=== PATIENT | female | born 1945 | race Caucasian/White ===

== ENCOUNTER 2017-10-19 13:54 | Outpatient (CLI) | payer MEDICARE, OTHER ==
[2017-10-19 18:35] LABS: THYROID STIMULATING HORMONE < 0.08 uIU/mL (0.34-5.60)
[2017-10-19 18:37] LABS: FREE T4 (FREE THYROXINE) 1.47 ng/dL (0.58-1.64)
== END 2017-10-19 13:55 | disposition home or self-care (01) ==
LOC: LAB.F 13:54
PROVIDERS: ATTEND Nurse Practitioner
DX: E05.90 Thyrotoxicosis, unspecified without thyrotoxic crisis or storm (principal)
CPT/HCPCS: 36415; 84439; 84443

== ENCOUNTER 2017-11-19 10:12 | Outpatient (CLI) | payer MEDICARE, OTHER ==
[2017-11-19 17:56] LABS: THYROID STIMULATING HORMONE 25.25 uIU/mL (0.34-5.60)
[2017-11-19 17:58] LABS: FREE T4 (FREE THYROXINE) 0.35 ng/dL (0.58-1.64)
== END 2017-11-19 10:13 | disposition home or self-care (01) ==
LOC: LAB.F 10:12
PROVIDERS: ATTEND Nurse Practitioner
DX: E05.90 Thyrotoxicosis, unspecified without thyrotoxic crisis or storm (principal)
CPT/HCPCS: 36415; 84439; 84443; 84481

== ENCOUNTER 2017-11-30 09:26 | Outpatient (CLI) | payer MEDICARE, OTHER ==
[2017-11-30 18:15] LABS: ALBUMIN 3.8 g/dL (3.2-5.5); ALKALINE PHOSPHATASE 92 IU/L (42-121); ALT ALANINE AMINOTRANSFERASE 22 IU/L (10-60); AST ASPARTATE AMINOTRANSFERASE 30 IU/L (10-42); BILIRUBIN,TOTAL 0.5 mg/dL (0.2-1.0); CHOL/HDL RATIO 4.5 (<4.4); CHOLESTEROL 192 mg/dL; HDL CHOLESTEROL 43 mg/dL; LDL CHOLESTEROL,CALCULATED 107 mg/dL; LDL/HDL RATIO 2.5 (<4.4); TOTAL PROTEIN 7.7 g/dL (6.7-8.2); VLDL CHOLESTEROL 42 mg/dL
[2017-11-30 18:32] LABS: BILIRUBIN,DIRECT < 0.1 mg/dL (0.1-0.5)
== END 2017-11-30 09:27 | disposition home or self-care (01) ==
LOC: LAB.F 09:26
PROVIDERS: ATTEND Internal Medicine
DX: E78.5 Hyperlipidemia, unspecified (principal)
CPT/HCPCS: 36415; 80061; 80076; 83721

== ENCOUNTER 2018-01-05 09:01 | Outpatient (CLI) | payer MEDICARE, OTHER ==
[2018-01-05 12:11] LABS: THYROID STIMULATING HORMONE 5.71 uIU/mL (0.34-5.60)
[2018-01-05 12:13] LABS: FREE T4 (FREE THYROXINE) 0.71 ng/dL (0.58-1.64)
== END 2018-01-05 09:02 | disposition home or self-care (01) ==
LOC: LAB.F 09:01
PROVIDERS: ATTEND Nurse Practitioner
DX: E03.8 Other specified hypothyroidism (principal)
CPT/HCPCS: 36415; 84439; 84443

== ENCOUNTER 2018-02-22 08:00 | Outpatient (CLI) | payer MEDICARE, OTHER ==
[2018-02-22 18:48] LABS: THYROID STIMULATING HORMONE 0.33 uIU/mL (0.34-5.60)
[2018-02-22 18:50] LABS: FREE T4 (FREE THYROXINE) 0.82 ng/dL (0.58-1.64)
== END 2018-02-22 08:01 | disposition home or self-care (01) ==
LOC: LAB.F 08:00
PROVIDERS: ATTEND Nurse Practitioner
DX: E03.8 Other specified hypothyroidism (principal)
CPT/HCPCS: 36415; 84439; 84443

== ENCOUNTER 2018-04-23 10:57 | Outpatient (CLI) | payer MEDICARE, OTHER ==
[2018-04-23 18:01] LABS: THYROID STIMULATING HORMONE 0.22 uIU/mL (0.34-5.60)
[2018-04-23 18:03] LABS: FREE T4 (FREE THYROXINE) 0.79 ng/dL (0.58-1.64)
== END 2018-04-23 10:58 | disposition home or self-care (01) ==
LOC: LAB.F 10:57
PROVIDERS: ATTEND Nurse Practitioner
DX: E03.8 Other specified hypothyroidism (principal)
CPT/HCPCS: 36415; 84439; 84443

== ENCOUNTER 2018-06-08 09:34 | Outpatient (CLI) | payer MEDICARE, OTHER ==
[2018-06-08 18:23] LABS: THYROID STIMULATING HORMONE 1.91 uIU/mL (0.34-5.60)
[2018-06-08 18:25] LABS: FREE T4 (FREE THYROXINE) 0.63 ng/dL (0.58-1.64)
== END 2018-06-08 09:35 | disposition home or self-care (01) ==
LOC: LAB.F 09:34
PROVIDERS: ATTEND Nurse Practitioner
DX: E03.8 Other specified hypothyroidism (principal)
CPT/HCPCS: 84439; 84443; 84481

== ENCOUNTER 2018-07-23 09:31 | Outpatient (CLI) | payer MEDICARE, OTHER | END 2018-07-23 09:32 | disposition home or self-care (01) | LOC: LAB.F 09:31 | PROVIDERS: ATTEND Internal Medicine | DX: E78.49 Other hyperlipidemia (principal) | CPT/HCPCS: 36415; 80061; 80076; 83721 ==

== ENCOUNTER 2018-07-30 09:01 | Outpatient (CLI) | payer MEDICARE, OTHER ==
[2018-07-30 14:25] LABS: ALBUMIN 4.3 g/dL (3.2-5.5); ALKALINE PHOSPHATASE 90 IU/L (42-121); ALT ALANINE AMINOTRANSFERASE 24 IU/L (10-60); AST ASPARTATE AMINOTRANSFERASE 26 IU/L (10-42); BILIRUBIN,TOTAL 0.7 mg/dL (0.2-1.0); CHOL/HDL RATIO 3.4 (<4.4); CHOLESTEROL 175 mg/dL; HDL CHOLESTEROL 52 mg/dL; LDL CHOLESTEROL,CALCULATED 85 mg/dL; LDL/HDL RATIO 1.6 (<4.4); TOTAL PROTEIN 7.7 g/dL (6.7-8.2); VLDL CHOLESTEROL 38 mg/dL
[2018-07-30 14:27] LABS: BILIRUBIN,DIRECT < 0.1 mg/dL (0.1-0.5)
== END 2018-07-30 09:02 | disposition home or self-care (01) ==
LOC: LAB.F 09:01
PROVIDERS: ATTEND Internal Medicine
DX: E78.49 Other hyperlipidemia (principal)
CPT/HCPCS: 36415; 80061; 80076; 83721

== ENCOUNTER 2018-08-09 12:05 | Outpatient (CLI) | payer MEDICARE, OTHER ==
[2018-08-09 19:13] LABS: CALCIUM 10.3 mg/dL (8.5-10.3); CREATININE 0.9 mg/dL (0.4-1.0)
== END 2018-08-09 12:06 | disposition home or self-care (01) ==
LOC: LAB.F 12:05
PROVIDERS: ATTEND Nurse Practitioner Family
DX: Z01.818 Encounter for other preprocedural examination (principal)
CPT/HCPCS: 36415; 80048; 85014

== ENCOUNTER 2018-09-01 08:00 | Outpatient (CLI) | payer MEDICARE, OTHER ==
[2018-09-01 17:57] LABS: BILIRUBIN,URINE NEGATIVE (NEGATIVE); GLUCOSE, URINE (UA) NEGATIVE (NEGATIVE); KETONES,URINE (UA) NEGATIVE (NEGATIVE); LEUKOCYTE ESTERASE, URINE LARGE (NEGATIVE); NITRITE,URINE NEGATIVE (NEGATIVE); OCCULT BLOOD,URINE SMALL (NEGATIVE); PH,URINE 5.5 PH (5.0-7.5); PROTEIN,URINE NEGATIVE (NEGATIVE); UROBILINOGEN,URINE 0.2 (NORMAL) E.U./dL (NORMAL)
[2018-09-01 19:03] LABS: CLARITY,URINE CLEAR (CLEAR); EPITHELIAL CELLS,UR FEW Transitional /HPF (<= Few); RBC,URINE 0-5 /HPF (0-5); SQUAMOUS EPITHELIAL CELL,UR FEW Squamous (<= Few)
[2018-09-01 19:04] LABS: BACTERIA,URINE Many /HPF (None Seen)
== END 2018-09-01 23:59 | disposition home or self-care (01) ==
LOC: LAB.F 08:00
PROVIDERS: ATTEND Obstetrics & Gynecology
DX: R30.0 Dysuria (principal)
CPT/HCPCS: 81001; 87077; 87086; 87181

== ENCOUNTER 2018-10-19 14:04 | Outpatient (CLI) | payer MEDICARE, OTHER | END 2018-10-19 14:05 | disposition home or self-care (01) | LOC: LAB.F 14:04 | PROVIDERS: ATTEND Obstetrics & Gynecology | DX: R30.0 Dysuria (principal) | CPT/HCPCS: 87086 ==

== ENCOUNTER 2018-12-13 14:26 | Emergency (ER) | payer MEDICARE, OTHER ==
--- NOTE | 2018-12-13 16:09 | ED Physician Documentation ---
History of Present Illness - Stated complaint Stated Complaint: V/NECK PX - Chief complaint Chief Complaint: General - History obtained from History obtained from: Patient - History of Present Illness Timing: How many days ago (3) Pain level max: 8 Pain level now: 8 - Additonal information Additional information: states pain in her neck and head after painting all day a few days ago. No neurological deficits. No fall. no trauma. Has not taking anything but marijuana. Better with rest and worse with movement. similar symptoms several years ago. States improved with pain meds and muscle relaxants. Review of Systems Constitutional: denies: Fever, Chills Throat: denies: Sore throat Respiratory: denies: Cough GI: reports: Nausea, Vomiting. denies: Abdominal Pain, Diarrhea : denies: Dysuria, Frequency, Hesitancy Skin: denies: Rash Musculoskeletal: reports: Neck pain Neurologic: reports: Headache. denies: Focal weakness, Numbness PD PAST MEDICAL HISTORY - Past Medical History Past Medical History: Yes Cardiovascular: Hypertension, High cholesterol Neuro: None Endocrine/Autoimmune: None GI: None HOSPITAL CODER: None : None HEENT: None Psych: None Musculoskeletal: None Derm: None - Past Surgical History Past Surgical History: Yes General: Cholecystectomy /HOSPITAL CODER: Hysterectomy, Oophrectomy, Mastectomy - Present Medications Home Medications: Ambulatory Orders Medication Instructions Recorded Confirmed Cyclobenzaprine [Flexeril] 10 mg DAILY PRN 01/01/14 01/21/14 Lisinopril [Prinivil] 10 mg BID 01/01/14 01/21/14 Cyclobenzaprine [Flexeril] 10 mg PO TID PRN #20 tablet 12/13/18 Meloxicam [Mobic] 15 mg PO DAILY PRN #20 tablet 12/13/18 Ondansetron Odt [Zofran] 4 mg TL Q6H PRN #10 tablet 12/13/18 - Allergies Allergies/Adverse Reactions: Allergies Allergy/AdvReac Type Severity Reaction Status Date / Time meperidine HCl * Allergy Nausea Verified 12/13/18 14:33 [From Demerol] Penicillins Allergy Rash Verified 12/13/18 14:33 Sulfa (Sulfonamide Allergy Rash Verified 12/13/18 14:33 Antibiotics) codeine AdvReac Nausea Verified 12/13/18 14:33 - Social History Does the pt smoke?: No Smoking Status: Never smoker Does the pt drink ETOH?: No Does the pt have substance abuse?: Yes Substance Use and Type: Marijuana - Immunizations Immunizations are current?: Yes - POLST Patient has POLST: No PD ED PE NORMAL - Vitals Vital signs reviewed: Yes - General General: Alert and oriented X 3, No acute distress, Well developed/nourished - HEENT HEENT: Atraumatic, PERRL, EOMI, Moist mucous membranes - Neck Neck: Supple, no meningeal sign, No bony TTP, Other (paraspinal spasm B. 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 Feels better after pain medication and muscle relaxants. Will place on the same for home. We will follow-up with her doctor for further care. Patient counseled regarding signs and symptoms for which I believe and urgent re-evaluation would be necessary. Patient with good understanding of and agreement to plan and is comfortable going home at this time This document was made in part using voice recognition software. While efforts are made to proofread this document, sound alike and grammatical errors may occur. Departure - Departure Disposition: 01 Home, Self Care Clinical Impression: Neck muscle spasm Condition: Good Instructions: ED Spasm Neck No Injury Follow-Up: Leeann Ramirez MD [Primary Care Provider] - Within 1 week Prescriptions: Cyclobenzaprine [Flexeril] 10 mg PO TID PRN #20 tablet PRN Reason: Spasms Meloxicam [Mobic] 15 mg PO DAILY PRN #20 tablet PRN Reason: pain Ondansetron Odt [Zofran] 4 mg TL Q6H PRN #10 tablet PRN Reason: Nausea / Vomiting Comments: Use the medications as prescribed. Return if you worsen. Do not drive or operate heavy machinery while taking the Flexeril. Continue to gently move your neck as this will help with the spasm. Discharge Date/Time: 12/13/18 16:52
[2018-12-13] MEDS ORDERED: MELOXICAM 7.5 MG TABLET PO STA (16:10)
[2018-12-13] MEDS ORDERED: CYCLOBENZAPRINE 10 MG TABLET PO STA (16:10)
[2018-12-13] MEDS: ONDANSETRON ODT 4 MG TABLET TL STA ×2 (16:23→16:25)
[2018-12-13 16:51] VITALS: BP 136/88
== END 2018-12-13 16:52 | disposition home or self-care (01) ==
LOC: ED 14:26
DX: M62.838 Other muscle spasm (principal); M54.2 Cervicalgia; I10 Essential (primary) hypertension
CPT/HCPCS: 99282; 99284; A9270; Q0162

== ENCOUNTER 2020-06-18 15:15 | Emergency (ER) | payer MEDICARE, OTHER ==
--- NOTE | 2020-06-18 15:28 | ED Physician Documentation ---
PD HPI Fall - Stated complaint Stated Complaint: FALL, HAND & BACK INJURY - History obtained from History obtained from: Patient - Additional information Additional information: Fell 3 feet off a ladder landing on her right side and back in her right hand. The hand and back hurt more than anything. She denies head or neck pain or head or neck injury. Declines pain medication on initial evaluation. 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: Hysterectomy, Oophrectomy, Mastectomy - Present Medications Home Medications: Ambulatory Orders Medication Instructions Recorded Confirmed Cyclobenzaprine [Flexeril] 10 mg DAILY PRN 01/01/14 01/21/14 Lisinopril [Prinivil] 10 mg BID 01/01/14 01/21/14 Cyclobenzaprine [Flexeril] 10 mg PO TID PRN #20 tablet 12/13/18 Meloxicam [Mobic] 15 mg PO DAILY PRN #20 tablet 12/13/18 Ondansetron Odt [Zofran] 4 mg TL Q6H PRN #10 tablet 12/13/18 HYDROcod/ACETAM 5/325 [Burton 5/325] 1 - 2 tab PO Q6H PRN #15 tablet 06/18/20 Ondansetron Odt [Zofran] 4 mg TL Q6H PRN #15 tablet 06/18/20 - Allergies Allergies/Adverse Reactions: Allergies Allergy/AdvReac Type Severity Reaction Status Date / Time meperidine HCl * Allergy Nausea Verified 06/18/20 15:38 [From Demerol] Penicillins Allergy Rash Verified 06/18/20 15:38 Sulfa (Sulfonamide Allergy Rash Verified 06/18/20 15:38 Antibiotics) codeine AdvReac Nausea Verified 06/18/20 15:38 - Social History Does the pt smoke?: No Smoking Status: Never smoker Does the pt drink ETOH?: No Does the pt have substance abuse?: Yes - Immunizations Immunizations are current?: Yes - POLST Patient has POLST: No PD ED PE NORMAL - Vitals Vital signs reviewed: Yes - General General: Alert and oriented X 3, No acute distress - HEENT HEENT: PERRL, EOMI - Neck Neck: No bony TTP - Cardiac Cardiac: RRR, No murmur - Respiratory Respiratory: No respiratory distress, Clear bilaterally - Back Back: Other (She has some mild tenderness of the lateral right low ribs. No midline thoracic or cervical spine tenderness. She does have tenderness at the lumbar sacral junction.) - Derm Derm: Normal color, Warm and dry - Extremities Extremities: Other (There is a swollen slightly fluctuant but mostly firm mass over the proximal fifth metacarpal dorsally of the right hand and tender in that area.) - Neuro Neuro: Alert and oriented X 3, Normal speech - Psych Psych: Normal mood, Normal affect Results - Vitals Vitals: Vital Signs - 24 hr 06/18/20 06/18/20 15:30 16:19 Temperature 36.8 C Heart Rate 68 68 Respiratory 16 16 Rate Blood Pressure 177/74 H 162/60 H O2 Saturation 99 100 Oxygen O2 Source Room air - Rads (name of study) XR R hand,. L spine, Coccyx, R ribs Radiology: EMP read contemporaneously (Neg except An acute oblique fracture of the fifth proximal metacarpal with minimal displacement.) Procedures - Splint (location) R hand XR Splint applied by: Tech Type of splint: Ulnar gutter Other: Patient tolerated well, No complications, Neurovascular intact, Good alignment Departure - Departure Disposition: 01 Home, Self Care Clinical Impression: Fall from height of greater than 3 feet Fracture of fifth metacarpal bone of right hand Qualifiers: Encounter type: initial encounter Fracture type: closed Metacarpal location: base Fracture alignment: nondisplaced Qualified Code(s): S62.346A - Nondisplaced fracture of base of fifth metacarpal bone, right hand, initial encounter for closed fracture Back pain Qualifiers: Back pain location: low back pain Chronicity: acute Back pain laterality: unspecified Sciatica presence: without sciatica Qualified Code(s): M54.5 - Low back pain Chest wall contusion Qualifiers: Encounter type: initial encounter Laterality: unspecified laterality Qualified Code(s): S20.219A - Contusion of unspecified front wall of thorax, initial encounter Condition: Good Instructions: ED Fx Hand Closed Follow-Up: [facility] [Provider Group] Prescriptions: HYDROcod/ACETAM 5/325 [Burton 5/325] 1 - 2 tab PO Q6H PRN #15 tablet PRN Reason: Pain Ondansetron Odt [Zofran] 4 mg TL Q6H PRN #15 tablet PRN Reason: Nausea / Vomiting Comments: Keep the splint on and dry until you follow-up with the orthopedics office, call them tomorrow for an appointment within the week. Return for new or worsening symptoms.
[2020-06-18] MEDS ORDERED: ONDANSETRON ODT 4 MG TABLET TL STA (16:08)
[2020-06-18] MEDS ORDERED: HYDROcod/ACETAM 5/325 MG TABLET PO STA (16:08)
[2020-06-18 16:20] VITALS: BP 162/60
--- NOTE | 2020-06-18 16:20 | XRAY Report ---
PROCEDURE: Sacrum/Coccyx INDICATIONS: back inj TECHNIQUE: 3 views of the sacrum and coccyx acquired. COMPARISON: None. FINDINGS: Bones: No fractures or dislocations. No suspicious bony lesions. Soft tissues: Visualized bowel gas pattern is normal. No suspicious soft tissue densities. IMPRESSION: No gross acute sacral or coccygeal fracture. Reviewed by: Shay Shook MD on 06/18/2020 4:18 PM PST Approved by: Shay Shook MD on 06/18/2020 4:18 PM PST Station ID: [id number]
--- NOTE | 2020-06-18 16:22 | XRAY Report ---
PROCEDURE: Ribs w/PA Chest RT INDICATIONS: rib inj TECHNIQUE: 2 views of the right ribs were acquired, along with a single view chest. COMPARISON: Chest radiograph dated 01/21/2014. FINDINGS: Surgical changes and devices: Surgical clips are seen in right upper quadrant abdomen. Postbiopsy mar ker is also seen in right breast. Bones and chest wall: No fractures or dislocations. No suspicious bony lesions. Overlying soft tis sues appear unremarkable. Lungs and pleura: No pleural effusions or pneumothorax. Lungs appear clear. Mediastinum: Mediastinal contours appear normal. Heart size is normal. IMPRESSION: 1. No gross displaced right rib fracture. 2. No acute cardiopulmonary pathology. Reviewed by: Shay Shook MD on 06/18/2020 4:20 PM PST Approved by: Shay Shook MD on 06/18/2020 4:20 PM PST Station ID: [id number]
--- NOTE | 2020-06-18 16:23 | XRAY Report ---
PROCEDURE: Lumbar Spine 2 View INDICATIONS: back inj TECHNIQUE: 2 views of the lumbar spine were acquired. COMPARISON: None. FINDINGS: Bones: 5 [id number] vertebrae are present. There is moderate rightward scoliosis of lumbar spi ne centered at L3-4 level. Degenerative endplate changes and decreased intervertebral disc space thro ughout lumbar spine is seen.. No vertebral body compression fractures. No suspicious bony lesions. Soft tissues: Overlying bowel gas pattern is normal. No suspicious soft tissue calcifications. IMPRESSION: No acute lumbar spine fracture or dislocation. 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 Mild to moderate scoliosis as above. Reviewed by: Shay Shook MD on 06/18/2020 4:21 PM PST Approved by: Shay Shook MD on 06/18/2020 4:21 PM PST Station ID: [id number]
--- NOTE | 2020-06-18 16:24 | XRAY Report ---
PROCEDURE: Hand 3 View RT INDICATIONS: hand inj TECHNIQUE: 3 views of the hand(s) acquired. COMPARISON: None FINDINGS: Bones: Acute oblique fracture through proximal shaft of fifth metacarpal bone is seen with minimal di splacement at fracture site. Osteoarthritic changes are noted throughout right hand more prominent in second through fifth the RT joints. No suspicious bony lesions. Soft tissues: No suspicious soft tissue calcifications. Marked soft tissue swelling over dorsal and medial aspect of fifth metacarpal shaft is seen. IMPRESSION: Acute oblique fracture of fifth proximal shaft of fifth metacarpal bone with minimal displacement at fracture site and marked overlying soft tissue swelling. 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 Reviewed by: Shay Shook MD on 06/18/2020 4:23 PM PST Approved by: Shay Shook MD on 06/18/2020 4:23 PM PST Station ID: [id number]
== END 2020-06-18 16:44 | disposition home or self-care (01) ==
LOC: ED 15:15
DX: S62.316A Displaced fracture of base of fifth metacarpal bone, right hand, initial encounter for closed fracture (principal); S20.219A Contusion of unspecified front wall of thorax, initial encounter; W17.89XA Other fall from one level to another, initial encounter; M54.5 Low back pain; I10 Essential (primary) hypertension
CPT/HCPCS: 29125; 71101; 72100; 72220; 73130; 99283; 99284; A9270; Q0162

== ENCOUNTER 2020-10-30 08:00 | Outpatient (CLI) | payer MEDICARE, OTHER ==
--- NOTE | 2020-10-30 17:55 | XRAY Report ---
PROCEDURE: Sacrum/Coccyx INDICATIONS: PAIN IN THE COCCYX TECHNIQUE: 3 views of the sacrum and coccyx acquired. COMPARISON: Concurrent study of the lumbar spine, lumbar spine x-ray 06/18/2020 FINDINGS: Bones: No definite fracture of the coccyx. There is mild sacroiliac joint degeneration. Transitional anatomy is redemonstrated at L5. No suspicious bony lesions. Soft tissues: Visualized bowel gas pattern is normal. No suspicious soft tissue densities. IMPRESSION: 1. No definite coccyx fracture identified. Reviewed by: Adelso Kinney MD on 10/30/2020 5:53 PM PDT Approved by: Adelso Kinney MD on 10/30/2020 5:53 PM PDT Station ID: [id number]
--- NOTE | 2020-10-30 18:00 | XRAY Report ---
PROCEDURE: Lumbar Spine 2 View INDICATIONS: LOW BACK PAIN TECHNIQUE: 3 views of the lumbar spine were acquired. COMPARISON: X-ray of the lumbar spine 06/18/2020. CT abdomen pelvis 01/01/2014. FINDINGS: Bones: 5 [id number] vertebrae are present. There is transitional anatomy with sacralization of the L5 vertebra. There is a rudimentary disc at L5-S1. A rightward curvature is redemonstrated center ed at L3-L4. There is mild multilevel degenerative disc disease throughout the lumbar spine. Mild fac et arthropathy also present in the lower lumbar spine. No vertebral body compression fractures. There is a linear lucency projecting over the S4 level in the sacrum. Soft tissues: Overlying bowel gas pattern is normal. 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 IMPRESSION: 1. Linear lucency projecting over the the S4 level may represent a minimally displaced sacral fractur e. If clinical concern persists, recommend further evaluation with CT. 2. 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 A follow-up nonemergent CT may performed to fur ther evaluation if clinically indicated. 3. Transitional anatomy with sacralization of L5. 4. Rightward curvature of the lumbar spine centered at L3-L4. Reviewed by: Adelso Kinney MD on 10/30/2020 5:59 PM PDT Approved by: Adelso Kinney MD on 10/30/2020 5:59 PM PDT Station ID: [id number]
== END 2020-10-30 23:59 | disposition home or self-care (01) ==
LOC: DI.S 08:00
PROVIDERS: ATTEND Physician Assistant Medical
DX: M47.898 Other spondylosis, sacral and sacrococcygeal region (principal); M51.36 Other intervertebral disc degeneration, lumbar region; M47.816 Spondylosis without myelopathy or radiculopathy, lumbar region; M41.9 Scoliosis, unspecified

== ENCOUNTER 2021-10-18 09:55 | Outpatient (CLI) | payer MEDICARE, OTHER ==
[2021-10-18 14:53] LABS: BASOPHILS # (AUTO) 0.1 10^3/uL (0.0-0.1); BASOPHILS % (AUTO) 1.3 %; EOSINOPHILS # (AUTO) 0.2 10^3/uL (0.0-0.7); EOSINOPHILS % (AUTO) 3.2 %; HCT - HEMATOCRIT 41.1 % (37.0-47.0); LYMPHOCYTES # (AUTO) 1.2 10^3/uL (1.5-3.5); LYMPHOCYTES % (AUTO) 22.6 %; MEAN CORPUSCULAR HEMOGLOBIN 30.6 pg (27.0-31.0); MEAN CORPUSCULAR HGB CONC 34.1 g/dL (32.0-36.0); MEAN CORPUSCULAR VOLUME 89.7 fL (81.0-99.0); MEAN PLATELET VOLUME 10.1 fL (7.9-10.8); MONOCYTES # (AUTO) 0.4 10^3/uL (0.0-1.0); NEUTROPHILS # (AUTO) 3.5 10^3/uL (1.5-6.6); NEUTROPHILS % (AUTO) 64.7 %; PLT - PLATELET COUNT 221 10^3/uL (130-450); RED BLOOD COUNT 4.58 10^6/uL (4.20-5.40); RED CELL DISTRIBUTION WIDTH 11.9 % (12.0-15.0); WHITE BLOOD COUNT 5.4 x10^3/uL (4.8-10.8)
[2021-10-18 15:18] LABS: ALBUMIN 4.2 g/dL (3.2-5.5); ALBUMIN/GLOBULIN RATIO 1.4 (1.0-2.2); BILIRUBIN,TOTAL 0.6 mg/dL (0.2-1.0); CALCIUM 9.7 mg/dL (8.5-10.3); POTASSIUM 4.1 mmol/L (3.5-5.0); TOTAL PROTEIN 7.2 g/dL (6.7-8.2)
[2021-10-18 15:33] LABS: THYROID STIMULATING HORMONE 0.57 uIU/mL (0.34-5.60)
== END 2021-10-18 09:56 | disposition home or self-care (01) ==
LOC: LAB.S 09:55
PROVIDERS: ATTEND Nurse Practitioner Family
DX: R00.0 Tachycardia, unspecified (principal)
CPT/HCPCS: 36415; 80053; 84443; 85025

== ENCOUNTER 2022-08-21 14:07 | Outpatient (CLI) | payer MEDICARE, OTHER ==
[2022-08-21 19:52] LABS: BASOPHILS # (AUTO) 0.1 10^3/uL (0.0-0.1); BASOPHILS % (AUTO) 0.8 %; EOSINOPHILS # (AUTO) 0.1 10^3/uL (0.0-0.7); EOSINOPHILS % (AUTO) 1.5 %; HCT - HEMATOCRIT 42.2 % (37.0-47.0); HGB - HEMOGLOBIN 13.9 g/dL (12.0-16.0); LYMPHOCYTES # (AUTO) 1.6 10^3/uL (1.5-3.5); LYMPHOCYTES % (AUTO) 26.8 %; MEAN CORPUSCULAR HEMOGLOBIN 29.3 pg (27.0-31.0); MEAN CORPUSCULAR HGB CONC 32.9 g/dL (32.0-36.0); MEAN CORPUSCULAR VOLUME 88.8 fL (81.0-99.0); MEAN PLATELET VOLUME 10.2 fL (7.9-10.8); MONOCYTES # (AUTO) 0.5 10^3/uL (0.0-1.0); MONOCYTES % (AUTO) 7.7 %; NEUTROPHILS # (AUTO) 3.7 10^3/uL (1.5-6.6); NEUTROPHILS % (AUTO) 62.9 %; PLT - PLATELET COUNT 214 10^3/uL (130-450); RED BLOOD COUNT 4.75 10^6/uL (4.20-5.40); RED CELL DISTRIBUTION WIDTH 11.7 % (12.0-15.0)
[2022-08-21 20:09] LABS: ALBUMIN 4.1 g/dL (3.2-5.5); ALBUMIN/GLOBULIN RATIO 1.5 (1.0-2.2); BILIRUBIN,TOTAL 0.6 mg/dL (0.2-1.0); CALCIUM 9.4 mg/dL (8.5-10.3); CREATININE 0.9 mg/dL (0.4-1.0); POTASSIUM 3.9 mmol/L (3.5-5.0); TOTAL PROTEIN 6.9 g/dL (6.7-8.2)
[2022-08-21 20:26] LABS: THYROID STIMULATING HORMONE 0.43 uIU/mL (0.34-5.60)
[2022-08-21 21:07] LABS: ESTIMATED AVERAGE GLUCOSE 143 mg/dL (70-100); HEMOGLOBIN A1c% 6.6 % (4.27-6.07)
== END 2022-08-21 14:08 | disposition home or self-care (01) ==
LOC: LAB.S 14:07
PROVIDERS: ATTEND Nurse Practitioner Family
DX: I12.9 Hypertensive chronic kidney disease with stage 1 through stage 4 chronic kidney disease, or unspecified chronic kidney disease (principal); N18.31 Chronic kidney disease, stage 3a; R73.03 Prediabetes; E03.8 Other specified hypothyroidism
CPT/HCPCS: 36415; 80053; 83036; 84443; 85025

== ENCOUNTER 2023-02-08 13:22 | Emergency (ER) | payer MEDICARE, OTHER ==
[2023-02-08 13:50] LABS: BASOPHILS % (AUTO) 0.4 %; EOSINOPHILS # (AUTO) 0.1 10^3/uL (0.0-0.7); EOSINOPHILS % (AUTO) 1.2 %; HCT - HEMATOCRIT 47.3 % (37.0-47.0); HGB - HEMOGLOBIN 15.9 g/dL (12.0-16.0); LYMPHOCYTES % (AUTO) 19.1 %; MEAN CORPUSCULAR HEMOGLOBIN 29.2 pg (27.0-31.0); MEAN CORPUSCULAR HGB CONC 33.6 g/dL (32.0-36.0); MEAN CORPUSCULAR VOLUME 86.8 fL (81.0-99.0); MEAN PLATELET VOLUME 9.3 fL (7.9-10.8); MONOCYTES # (AUTO) 0.4 10^3/uL (0.0-1.0); MONOCYTES % (AUTO) 8.5 %; NEUTROPHILS # (AUTO) 3.7 10^3/uL (1.5-6.6); NEUTROPHILS % (AUTO) 70.6 %; PLT - PLATELET COUNT 190 10^3/uL (130-450); RED BLOOD COUNT 5.45 10^6/uL (4.20-5.40); RED CELL DISTRIBUTION WIDTH 11.8 % (12.0-15.0); WHITE BLOOD COUNT 5.2 x10^3/uL (4.8-10.8)
[2023-02-08 14:06] LABS: ALBUMIN 4.5 g/dL (3.2-5.5); ALBUMIN/GLOBULIN RATIO 1.7 (1.0-2.2); BILIRUBIN,TOTAL 0.7 mg/dL (0.2-1.0); CREATININE 0.9 mg/dL (0.6-1.3); POTASSIUM 3.5 mmol/L (3.5-4.5); TOTAL PROTEIN 7.2 g/dL (6.4-8.9)
[2023-02-08 14:25] LABS: BILIRUBIN,URINE NEGATIVE (NEGATIVE); CLARITY,URINE CLEAR (CLEAR); GLUCOSE, URINE (UA) NEGATIVE (NEGATIVE); KETONES,URINE (UA) NEGATIVE (NEGATIVE); LEUKOCYTE ESTERASE, URINE SMALL (NEGATIVE); NITRITE,URINE NEGATIVE (NEGATIVE); OCCULT BLOOD,URINE NEGATIVE (NEGATIVE); PROTEIN,URINE NEGATIVE (NEGATIVE); UROBILINOGEN,URINE 0.2 (NORMAL) E.U./dL (NORMAL)
--- NOTE | 2023-02-08 14:25 | ED Physician Documentation ---
PD HPI NVD - Stated complaint Stated Complaint: V/D - Chief complaint Chief Complaint: Abd Pain - History obtained from History obtained from: Patient - History of Present Illness Timing - onset: How many days ago (4) Timing - duration: Days (4) Timing - details: Gradual onset, Still present Associated symptoms: Abdominal pain, Dizzy, Near syncope / syncope Contributing factors: No: Sick contact, Bad food Improved by: Vomiting, BM Worsened by: Eating Similar symptoms before: Has not had sx before Recently seen: Not recently seen - Additonal information Additional information: 77-year-old [place] Chou was previously well and about 4 days ago she developed a diarrheal illness associated with some vomiting as well. This started with vomiting and she has continued to have diarrhea for the past 4 days she is now feeling weak and dehydrated. She denies any blood in the stool. She denies any coffee-ground emesis. She was not otherwise ill prior to the onset. Review of Systems Constitutional: denies: Fever Eyes: denies: Decreased vision Ears: denies: Ear pain Nose: denies: Congestion Throat: denies: Sore throat Cardiac: denies: Chest pain / pressure Respiratory: denies: Dyspnea, Cough GI: reports: Abdominal Pain, Nausea, Vomiting, Diarrhea : denies: Dysuria, Frequency Skin: denies: Rash Musculoskeletal: denies: Neck pain, Back pain, Extremity pain Neurologic: reports: Generalized weakness. 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: Hysterectomy, Oophrectomy, Mastectomy - Present Medications Home Medications: Ambulatory Orders Medication Instructions Recorded Confirmed Cyclobenzaprine [Flexeril] 10 mg DAILY PRN 01/01/14 01/21/14 lisinopriL [Prinivil] 10 mg BID 01/01/14 01/21/14 Cyclobenzaprine [Flexeril] 10 mg PO TID PRN #20 tablet 12/13/18 Meloxicam [Mobic] 15 mg PO DAILY PRN #20 tablet 12/13/18 Ondansetron Odt [Zofran] 4 mg TL Q6H PRN #10 tablet 12/13/18 HYDROcod/ACETAM 5/325 [Holden 5/325] 1 - 2 tab PO Q6H PRN #15 tablet 06/18/20 Ondansetron Odt [Zofran] 4 mg TL Q6H PRN #15 tablet 06/18/20 Ondansetron Odt [Zofran] 4 mg TL Q6H PRN #10 tablet 02/08/23 - Allergies Allergies/Adverse Reactions: Allergies Allergy/AdvReac Type Severity Reaction Status Date / Time gabapentin Allergy Anaphylaxis Verified 02/08/23 13:28 meperidine HCl * Allergy Nausea Verified 06/18/20 15:38 [From Demerol] Penicillins Allergy Rash Verified 06/18/20 15:38 Sulfa (Sulfonamide Allergy Rash Verified 06/18/20 15:38 Antibiotics) codeine AdvReac Nausea Verified 06/18/20 15:38 - Social History Does the pt smoke?: No Smoking Status: Never smoker Does the pt drink ETOH?: No Does the pt have substance abuse?: Yes - Immunizations Immunizations are current?: Yes - POLST Patient has POLST: No PD ED PE NORMAL - Vitals Vital signs reviewed: Yes (hypertension ) - General General: Alert and oriented X 3, No acute distress, Well developed/nourished - HEENT HEENT: Atraumatic, PERRL, EOMI - Neck Neck: Supple, no meningeal sign, No bony TTP - Cardiac Cardiac: RRR, No murmur - Respiratory Respiratory: No respiratory distress, Clear bilaterally - Abdomen Abdomen: Soft, Non tender, Non distended, No organomegaly, Other (hyperactive b owel sounds ) - Back Back: No CVA TTP, No spinal TTP - Derm Derm: Normal color, Warm and dry, No rash - Extremities Extremities: No deformity, No edema - Neuro Neuro: Alert and oriented 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, 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, No motor deficit, No sensory deficit, Normal speech Eye Opening: Spontaneous Motor: Obeys Commands Verbal: Oriented GCS Score: 15 - Psych Psych: Normal mood, Normal affect Results - Vitals Vitals: Vital Signs - 24 hr 02/08/23 02/08/23 02/08/23 13:28 15:39 16:46 Temperature 36.5 C Heart Rate 100 77 77 Respiratory 16 16 16 Rate Blood Pressure 150/80 H 151/71 H 171/80 H O2 Saturation 98 99 100 Oxygen O2 Source Room air - Labs Labs: Laboratory Tests 02/08/23 02/08/23 02/08/23 13:44 13:44 14:15 WBC 5.2 RBC 5.45 H Hgb 15.9 Hct 47.3 H MCV 86.8 MCH 29.2 MCHC 33.6 RDW 11.8 L Plt Count 190 MPV 9.3 Neut # (Auto) 3.7 Lymph # (Auto) 1.0 L Gage # (Auto) 0.4 Eos # (Auto) 0.1 Baso # (Auto) 0.0 Absolute Nucleated RBC 0.00 Nucleated RBC % 0.0 Sodium 136 Potassium 3.5 Chloride 99 L Carbon Dioxide 27 Anion Gap 10.0 BUN 25 H Creatinine 0.9 Estimated GFR (MDRD) 61 L Glucose 122 H Calcium 10.0 Total Bilirubin 0.7 AST 35 ALT 29 Alkaline Phosphatase 85 Total Protein 7.2 Albumin 4.5 Globulin 2.7 Albumin/Globulin Ratio 1.7 Lipase 32 Urine Color YELLOW Urine Clarity CLEAR Urine pH 6.0 Ur Specific [place] 1.020 Urine Protein NEGATIVE Urine Glucose (UA) NEGATIVE Urine Ketones NEGATIVE Urine Occult Blood NEGATIVE Urine Nitrite NEGATIVE Urine Bilirubin NEGATIVE Urine Urobilinogen 0.2 (NORMAL) Ur Leukocyte Esterase SMALL H Urine RBC 0-5 Urine WBC 0-3 Ur Squamous Epith Cells FEW Squamous Urine Bacteria Rare Ur Microscopic Review INDICATED Urine Culture Comments INDICATED Procedures - IVC sono (time) 1414 Bedside IVC sono: IVC measures (cm) (0.72), Significant dehydration (st 2-3 liter deficit) PD Medical Decision Making - ED course Complexity details: reviewed old records, reviewed results, re-evaluated patient, considered differential, d/w patient Reviewed Lab Results: We reviewed a complete blood count showing a normal white blood cell count and elevated hematocrit and hemoglobin as well as a normal platelet count chemistries showed an elevation in BUN consistent with the patient's level of dehydration and otherwise normal electrolytes normal liver function. I interpreted these laboratory test to indicate the patient does not appear to have ongoing bleeding I believe the BUN elevation is related to the level of dehydration discovered with POCUS on interrogation of the inferior vena cava. I believe the elevated hematocrit as a result of hemoconcentration.The patient's blood work indicates dehydration. ED course: 77-year-old female with 4 days of nausea vomiting and diarrhea is significantly dehydrated on arrival to the emergency department and feeling weak. Her p otassium is normal her volume is significantly depressed. She is administered intravenous saline and Zofran. She feels much improved at discharge. Departure - Departure Disposition: 01 Home, Self Care Clinical Impression: Gastroenteritis, Dehydration Condition: Stable Instructions: ED Dehydration, ED Gastroenteritis Viral Follow-Up: Leeann Ramirez MD [Primary Care Provider] - Prescriptions: Ondansetron Odt [Zofran] 4 mg TL Q6H PRN #10 tablet PRN Reason: Nausea / Vomiting Comments: [place], today looks like you have a viral gastroenteritis and the expectation is that this is usually a 2 to 5-day illness. The problem gets to be dehydration and we have rehydrated you. We did not find any electrolyte abnormality today. The expectation is improvement in your symptoms over the next 2 days. I have E scribed some Zofran for you to the [facility] [place]. Discharge Date/Time: 02/08/23 16:46
[2023-02-08] MEDS: SODIUM CHLORIDE 0.9% 1,000 ML IV STA ×2 (14:28→15:39)
[2023-02-08] MEDS: ONDANSETRON 4 MG/2 ML VIAL IVP STA (14:28)
[2023-02-08 14:32] LABS: BACTERIA,URINE Rare /HPF (None Seen); RBC,URINE 0-5 /HPF (0-5); SQUAMOUS EPITHELIAL CELL,UR FEW Squamous (<= Few); WBC,URINE 0-3 /HPF (0-5)
[2023-02-08] MEDS: ONDANSETRON ODT 4 MG Prepack 2 TL PRN (16:45)
[2023-02-08 16:52] VITALS: BP 171/80; O2SAT 100
== END 2023-02-08 16:46 | disposition home or self-care (01) ==
LOC: ED 13:22
DX: K52.9 Noninfective gastroenteritis and colitis, unspecified (principal); E86.0 Dehydration; I10 Essential (primary) hypertension; Z79.899 Other long term (current) drug therapy
CPT/HCPCS: 36415; 80053; 81001; 81003; 83690; 85025; 87077; 87086; 96361; 96374; 99284

== ENCOUNTER 2023-02-26 10:14 | Outpatient (CLI) | payer MEDICARE, OTHER ==
--- NOTE | 2023-02-26 13:33 | XRAY Report ---
PROCEDURE: Shoulder 3 View RT INDICATIONS: RIGHT SHOULDER PAIN TECHNIQUE: 4 views of the shoulder were acquired. COMPARISON: None. FINDINGS: Bones: No fractures or dislocations. No suspicious bony lesions. Visualized ribs appear intact. Soft tissues: No suspicious soft tissue calcifications. The visualized lungs are within normal limi ts. IMPRESSION: No acute bony abnormality. If pain persists with conservative management, consider repeat radiographs in 10-14 days or cross-sectional imaging. Reviewed by: Jez Garcia MD on 02/26/2023 1:32 PM PDT Approved by: Jez Garcia MD on 02/26/2023 1:32 PM PDT Station ID: [id number]
== END 2023-02-26 23:59 | disposition home or self-care (01) ==
LOC: DI.S 10:14
PROVIDERS: ATTEND Specialist
DX: M19.011 Primary osteoarthritis, right shoulder (principal)

== ENCOUNTER 2023-09-30 10:17 | Outpatient (CLI) | payer MEDICARE, OTHER ==
[2023-09-30 14:20] LABS: BASOPHILS # (AUTO) 0.1 10^3/uL (0.0-0.1); BASOPHILS % (AUTO) 1.4 %; EOSINOPHILS # (AUTO) 0.3 10^3/uL (0.0-0.7); EOSINOPHILS % (AUTO) 5.5 %; HCT - HEMATOCRIT 43.6 % (37.0-47.0); LYMPHOCYTES # (AUTO) 1.3 10^3/uL (1.5-3.5); LYMPHOCYTES % (AUTO) 27.3 %; MEAN CORPUSCULAR HEMOGLOBIN 28.8 pg (27.0-31.0); MEAN CORPUSCULAR HGB CONC 32.1 g/dL (32.0-36.0); MEAN CORPUSCULAR VOLUME 89.7 fL (81.0-99.0); MONOCYTES # (AUTO) 0.4 10^3/uL (0.0-1.0); MONOCYTES % (AUTO) 7.2 %; NEUTROPHILS # (AUTO) 2.8 10^3/uL (1.5-6.6); NEUTROPHILS % (AUTO) 58.4 %; PLT - PLATELET COUNT 223 10^3/uL (130-450); RED BLOOD COUNT 4.86 10^6/uL (4.20-5.40); RED CELL DISTRIBUTION WIDTH 11.7 % (12.0-15.0); WHITE BLOOD COUNT 4.9 x10^3/uL (4.8-10.8)
[2023-09-30 14:37] LABS: ALBUMIN 4.5 g/dL (3.2-5.5); ALBUMIN/GLOBULIN RATIO 1.6 (1.0-2.2); ALKALINE PHOSPHATASE 96 IU/L (42-121); ALT ALANINE AMINOTRANSFERASE 28 IU/L (10-60); AST ASPARTATE AMINOTRANSFERASE 19 IU/L (10-42); BILIRUBIN,TOTAL 0.4 mg/dL (0.2-1.0); BUN - BLOOD UREA NITROGEN 25 mg/dL (6-20); CALCIUM 9.8 mg/dL (8.5-10.3); CARBON DIOXIDE - CO2 29 mmol/L (21-32); CHLORIDE 103 mmol/L (101-111); CHOLESTEROL 178 mg/dL; CREATININE 1.1 mg/dL (0.6-1.3); GFR - MDRD 48 (>89); GLUCOSE 128 mg/dL (74-104); HDL CHOLESTEROL 44 mg/dL; LDL CHOLESTEROL,CALCULATED 60 mg/dL; LDL/HDL RATIO 1.4 (<4.4); POTASSIUM 4.2 mmol/L (3.5-4.5); SODIUM 138 mmol/L (135-145); TOTAL PROTEIN 7.3 g/dL (6.4-8.9); TRIGLYCERIDES 372 mg/dL (48-352); VLDL CHOLESTEROL 74 mg/dL
[2023-09-30 14:44] LABS: THYROID STIMULATING HORMONE 0.91 uIU/mL (0.34-5.60)
[2023-09-30 14:49] LABS: CREATININE,URINE 195.6 mg/dL; MICROALBUM/CREATININE RATIO,UR 5.1 ug/mg (<30.0)
[2023-09-30 20:36] LABS: ESTIMATED AVERAGE GLUCOSE 148 mg/dL (70-100); HEMOGLOBIN A1c% 6.8 % (4.27-6.07)
--- NOTE | 2023-09-30 21:38 | XRAY Report ---
PROCEDURE: Chest 2V INDICATIONS: LUMP ON LEFT UPPER CHEST WALL TECHNIQUE: 2 views of the chest were acquired. COMPARISON: 01/21/2014. FINDINGS: Surgical changes and devices: None. Lungs and pleura: No pleural effusions or pneumothorax. Lungs are clear. Mediastinum: Mediastinal contours appear normal. Heart size is normal. Bones and chest wall: No suspicious bony lesions. Overlying soft tissues appear unremarkable. IMPRESSION: No acute cardiopulmonary process. Reviewed by: Shay Beckwith MD on 09/30/2023 9:37 PM PDT Approved by: Shay Beckwith MD on 09/30/2023 9:37 PM PDT Station ID: [id number]
== END 2023-09-30 10:18 | disposition home or self-care (01) ==
LOC: DI.S 10:17
PROVIDERS: ATTEND Nurse Practitioner Family
DX: R22.2 Localized swelling, mass and lump, trunk (principal); I12.9 Hypertensive chronic kidney disease with stage 1 through stage 4 chronic kidney disease, or unspecified chronic kidney disease; E11.22 Type 2 diabetes mellitus with diabetic chronic kidney disease; N18.31 Chronic kidney disease, stage 3a; E11.69 Type 2 diabetes mellitus with other specified complication; E78.5 Hyperlipidemia, unspecified
CPT/HCPCS: 36415; 80053; 80061; 82043; 82570; 83036; 83721; 84443; 85025